=== PATIENT | female | born 1975 | race Caucasian/White ===

== ENCOUNTER → 2017-03-18 | Outpatient (CLI) | payer BC ==
--- NOTE | 2017-03-21 13:25 | RADIOLOGY REPORT PS360 ---
DIG MAMM-SCREEN MELISSA W/CAD CAD Screening COMPARISON: Digital mammograms 03/24/2012 INDICATION: There is a history of breast cancer patient maternal grandmother and cousin TECHNIQUE: Standard CC and MLO images were obtained. R2 CAD reviewed. FINDINGS: Scattered fiber glandular densities are seen throughout both breasts and the findings are bilateral and symmetrical. There is no suspicious lesion and no suspicious microcalcifications. There are couple benign-appearing calcifications right breast. IMPRESSION: Fibrofatty parenchyma with no suspicious lesion seen recommend yearly follow-up BI-RADS CATEGORY: 2_Benign RECOMMENDED FOLLOWUP: 12M 12 MONTH FOLLOW-UP (A letter has been sent to the patient regarding results of the study.)
== END ==
LOC: RAD 02-28 17:00
DX: Z12.31 Encounter for screening mammogram for malignant neoplasm of breast (principal)
CPT/HCPCS: G0202